=== PATIENT | male | born 1970 | race Caucasian/White ===

== ENCOUNTER 2016-11-06 09:04 | Inpatient (IN) | payer MEDICAID ==
[~2016-11-06] VITALS: Ht 180.3 cm; Wt 99.6 kg
[2016-11-06 10:26] VITALS: BP 131/87
[2016-11-06 12:00] VITALS: BP 122/82
[2016-11-06 13:06] LABS: BASO % 0.3 % (0.0-1.0); EOS # 0.1 10*3/uL (0.0-0.4); EOS % 1.1 % (1.0-4.0); HEMATOCRIT 43.1 % (42.0-52.0); HEMOGLOBIN 14.3 g/dl (14.0-18.0); IG # 0.1 10*3/uL (0.0-0.1); LYMPH # 1.7 10*3/uL (1.3-4.4); LYMPH % 18.1 % (27.0-41.0); MEAN CELL VOLUME 85.2 fl (80.0-94.0); MEAN CORPUSCULAR HGB 28.3 pg (27.0-31.0); MEAN CORPUSCULAR HGB CONC 33.2 g/dl (33.0-37.0); MEAN PLATELET VOLUME 10.6 fl (9.6-12.3); MONO # 0.4 10*3/uL (0.1-1.0); MONO % 4.4 % (3.0-9.0); NEUT # 7.1 10*3/uL (2.3-7.9); NEUT % 75.5 % (47.0-73.0); PLATELET COUNT AUTOMATED 218 10*3/uL (130-400); RED BLOOD COUNT 5.06 10*6/uL (4.50-5.90); RED CELL DISTRI WIDTH 12.2 % (0-14.5); WHITE BLOOD COUNT 9.4 10*3/uL (4.8-10.8)
[2016-11-06 13:14] LABS: PROTHROMBIN TIME 10.6 SECONDS (9.0-12.4)
[2016-11-06 13:22] LABS: ALBUMIN 3.7 gm/dl (3.1-4.5); ALKALINE PHOSPHATASE 113 U/L (45-117); BILIRUBIN, TOTAL 0.4 mg/dl (0.2-1.0); BUN 14 mg/dl (7-24); CARBON DIOXIDE 29 mmol/L (21-32); CHLORIDE 102 mmol/L (98-107); EST GLOM FILT AFRICAN AMERICAN > 60 ml/min; GLUCOSE 100 mg/dL (65-99); POTASSIUM 3.9 mmol/L (3.5-5.1); SGOT/AST 17 IU/L (3-35); SGPT/ALT 38 U/L (12-78); SODIUM 137 mmol/L (136-145); TOTAL PROTEIN 7.7 gm/dL (6.4-8.2)
[2016-11-06 16:00] VITALS: BP 110/56
[2016-11-06 16:05] LABS: BILIRUBIN NEGATIVE (NEGATIVE); BLOOD NEGATIVE (NEGATIVE); CLARITY CLEAR (CLEAR); COLOR YELLOW (YELLOW); GLUCOSE NEGATIVE (NEGATIVE); KETONE TRACE (NEGATIVE); LEUKO ESTERASE NEGATIVE (NEGATIVE); NITRITE NEGATIVE (NEGATIVE); PROTEIN NEGATIVE (NEGATIVE)
[2016-11-06 16:10] LABS: BACTERIA TRACE; EPITHELIAL CELLS 0-2; RBC 0-2 rbc/hpf (0-2); URINE REFLEX COMMENT NO (NO); WBC 0-2 wbc/hpf (0-5)
[2016-11-06 16:15] LABS: URINE AMPHETAMINES < 1000 (1000ng/ml); URINE BARBITURATES < 200 (200ng/ml); URINE COCAINE < 300 (300ng/ml)
[2016-11-06 20:00] VITALS: BP 117/75
[2016-11-07] VITALS: BP 110/72
[2016-11-07 08:00] VITALS: BP 131/85
[2016-11-07 16:00] VITALS: BP 122/78
[2016-11-07 20:00] VITALS: BP 123/76
[2016-11-08] VITALS: BP 112/75
[2016-11-08 08:00] VITALS: BP 118/78
[2016-11-08 12:00] VITALS: BP 112/71
[2016-11-08 16:00] VITALS: BP 112/67
[2016-11-08 20:00] VITALS: BP 122/85; BP 128/76
[2016-11-09] VITALS: BP 114/75
[2016-11-09 08:00] VITALS: BP 108/68
[2016-11-09] MEDS ORDERED: ATARAX,VISTARIL50 MG PO (09:06)
[2016-11-09] MEDS ORDERED: METHOCARBAMOL750 M1 PO (09:06)
== END 2016-11-09 10:46 | disposition home or self-care (01) | DRG 897 ==
LOC: 5E 09:04
PROVIDERS: Internal Medicine
DX: F11.23 Opioid dependence with withdrawal (principal); E66.9 Obesity, unspecified; Z68.34 Body mass index [BMI] 34.0-34.9, adult; G25.81 Restless legs syndrome; R73.9 Hyperglycemia, unspecified; F19.10 Other psychoactive substance abuse, uncomplicated

== ENCOUNTER 2017-02-10 03:46 | Emergency (ER) | payer MEDICAID ==
[~2017-02-10] VITALS: Ht 180.3 cm; Wt 99.8 kg
[~2017-02-10 03:46] MED LIST: ATARAX,VISTARIL50 MG PO; METHOCARBAMOL750 M1 PO
[2017-02-10] MEDS ORDERED: PHENERGAN25 M3 PO (04:20)
[2017-02-10] MEDS ORDERED: CLONIDINE0.3 MG PO (04:20)
== END 2017-02-10 06:51 | disposition home or self-care (01) ==
LOC: ED 03:46
DX: F11.23 Opioid dependence with withdrawal (principal); R11.0 Nausea; R68.83 Chills (without fever); R45.1 Restlessness and agitation

== ENCOUNTER 2017-02-12 12:37 | Inpatient (IN) | payer MEDICAID ==
[~2017-02-12] VITALS: Ht 180.3 cm; Wt 108.6 kg
[~2017-02-12 12:37] MED LIST changes: +CLONIDINE0.3 MG PO; +PHENERGAN25 M3 PO
[2017-02-12] MEDS ORDERED: ZANAFLEX4 M2 PO (14:13)
[2017-02-12] MEDS ORDERED: NEURONTIN300 MG PO (14:13)
[2017-02-12] MEDS ORDERED: PHENOBARBITAL64.8 MG PO (14:15)
[2017-02-12 14:20] VITALS: BP 134/85
[2017-02-12 14:38] VITALS: BP 134/85
[2017-02-12 15:51] LABS: URINE AMPHETAMINES < 1000 (1000ng/ml); URINE BARBITURATES > 200 (200ng/ml); URINE BENZODIAZEPINES < 200 (200ng/ml); URINE CANNABINOIDS (THC) < 50 (50ng/ml); URINE COCAINE < 300 (300ng/ml); URINE METHADONE < 300 (300ng/ml); URINE OPIATES > 300 (300ng/ml)
[2017-02-12 15:54] VITALS: BP 136/88
[2017-02-12 15:55] LABS: URINE PHENCYCLIDINE < 25 (25ng/ml)
[2017-02-12 17:21] LABS: BASO # 0.1 10*3/uL (0.0-0.1); BASO % 0.6 % (0.0-1.0); EOS # 0.3 10*3/uL (0.0-0.4); EOS % 3.8 % (1.0-4.0); HEMATOCRIT 39.7 % (42.0-52.0); HEMOGLOBIN 13.2 g/dl (14.0-18.0); LYMPH # 2.5 10*3/uL (1.3-4.4); LYMPH % 29.5 % (27.0-41.0); MEAN CELL VOLUME 86.7 fl (80.0-94.0); MEAN CORPUSCULAR HGB 28.8 pg (27.0-31.0); MEAN CORPUSCULAR HGB CONC 33.2 g/dl (33.0-37.0); MEAN PLATELET VOLUME 10.2 fl (9.6-12.3); MONO # 0.7 10*3/uL (0.1-1.0); MONO % 7.9 % (3.0-9.0); NEUT # 4.9 10*3/uL (2.3-7.9); NEUT % 57.5 % (47.0-73.0); PLATELET COUNT AUTOMATED 174 10*3/uL (130-400); RED BLOOD COUNT 4.58 10*6/uL (4.50-5.90); RED CELL DISTRI WIDTH 12.9 % (0-14.5); WHITE BLOOD COUNT 8.6 10*3/uL (4.8-10.8)
[2017-02-12 17:37] LABS: ALBUMIN 3.6 gm/dl (3.1-4.5); ALKALINE PHOSPHATASE 91 U/L (45-117); BUN 13 mg/dl (7-24); CHLORIDE 102 mmol/L (98-107); CREATININE 1.15 mg/dL (0.70-1.30); POTASSIUM 4.4 mmol/L (3.5-5.1); SGOT/AST 14 IU/L (3-35); SGPT/ALT 25 U/L (12-78); SODIUM 138 mmol/L (136-145); TOTAL PROTEIN 6.9 gm/dL (6.4-8.2)
[2017-02-12 20:00] VITALS: BP 122/60
[2017-02-13] VITALS: BP 121/68
[2017-02-13 03:50] LABS: BILIRUBIN NEGATIVE (NEGATIVE); BLOOD NEGATIVE (NEGATIVE); CLARITY SL CLOUDY (CLEAR); COLOR YELLOW (YELLOW); GLUCOSE NEGATIVE (NEGATIVE); KETONE NEGATIVE (NEGATIVE); LEUKO ESTERASE NEGATIVE (NEGATIVE); NITRITE NEGATIVE (NEGATIVE); PH 5.5 (5.0-9.0); SPECIFIC GRAVITY >= 1.030 (1.005-1.030); UROBILINOGEN 0.2 E.U./dl (0.2-1.0)
[2017-02-13 03:59] LABS: BACTERIA 2+; URIC ACID CRYSTALS 1+
[2017-02-13 04:00] VITALS: BP 120/65
[2017-02-13 06:00] LABS: BASO % 0.5 % (0.0-1.0); EOS # 0.4 10*3/uL (0.0-0.4); HEMATOCRIT 39.9 % (42.0-52.0); LYMPH # 2.5 10*3/uL (1.3-4.4); LYMPH % 33.2 % (27.0-41.0); MEAN CELL VOLUME 86.4 fl (80.0-94.0); MEAN CORPUSCULAR HGB 28.1 pg (27.0-31.0); MEAN CORPUSCULAR HGB CONC 32.6 g/dl (33.0-37.0); MEAN PLATELET VOLUME 10.8 fl (9.6-12.3); MONO # 0.6 10*3/uL (0.1-1.0); MONO % 8.3 % (3.0-9.0); NEUT # 3.9 10*3/uL (2.3-7.9); NEUT % 52.1 % (47.0-73.0); PLATELET COUNT AUTOMATED 161 10*3/uL (130-400); RED BLOOD COUNT 4.62 10*6/uL (4.50-5.90); RED CELL DISTRI WIDTH 12.6 % (0-14.5); WHITE BLOOD COUNT 7.4 10*3/uL (4.8-10.8)
[2017-02-13 06:35] LABS: ALBUMIN 3.1 gm/dl (3.1-4.5); BUN 13 mg/dl (7-24); CHLORIDE 104 mmol/L (98-107); CHOLESTEROL 217 mg/dL (<200); MAGNESIUM 2.6 mg/dL (1.5-2.1); POTASSIUM 3.7 mmol/L (3.5-5.1); SGOT/AST 14 IU/L (3-35); SGPT/ALT 28 U/L (12-78); SODIUM 141 mmol/L (136-145); TRIGLYCERIDES 336 mg/dl (<150); VLDL CHOLESTEROL 67 mg/dL (6-40)
[2017-02-13 06:42] LABS: ALKALINE PHOSPHATASE 86 U/L (45-117); CREATININE 1.02 mg/dL (0.70-1.30); FREE T4 0.94 ng/dl (0.76-1.46); HDL CHOLESTEROL 40 mg/dl (40-60); LDL CHOLESTEROL 110 mg/dL (9-159); PHOSPHOROUS 2.4 mg/dL (2.5-4.9); TOTAL PROTEIN 6.3 gm/dL (6.4-8.2)
[2017-02-13 07:16] LABS: VITAMIN D, 25-HYDROXY 23.3 ng/mL (30-100)
[2017-02-13 08:00] VITALS: BP 134/76
[2017-02-13 16:00] VITALS: BP 104/68
[2017-02-14] VITALS: BP 103/58
[2017-02-14 08:00] VITALS: BP 110/62
[2017-02-14 16:00] VITALS: BP 115/75; BP 116/67
[2017-02-14 20:00] VITALS: BP 129/64
[2017-02-15] VITALS: BP 122/78
[2017-02-15 06:18] LABS: BASO % 0.6 % (0.0-1.0); EOS # 0.3 10*3/uL (0.0-0.4); EOS % 4.9 % (1.0-4.0); HEMATOCRIT 41.8 % (42.0-52.0); HEMOGLOBIN 13.9 g/dl (14.0-18.0); LYMPH # 2.4 10*3/uL (1.3-4.4); LYMPH % 34.4 % (27.0-41.0); MEAN CELL VOLUME 85.3 fl (80.0-94.0); MEAN CORPUSCULAR HGB 28.4 pg (27.0-31.0); MEAN CORPUSCULAR HGB CONC 33.3 g/dl (33.0-37.0); MEAN PLATELET VOLUME 10.9 fl (9.6-12.3); MONO # 0.5 10*3/uL (0.1-1.0); MONO % 7.2 % (3.0-9.0); NEUT # 3.6 10*3/uL (2.3-7.9); NEUT % 51.9 % (47.0-73.0); PLATELET COUNT AUTOMATED 180 10*3/uL (130-400); RED CELL DISTRI WIDTH 12.6 % (0-14.5)
[2017-02-15 06:52] LABS: ALBUMIN 3.1 gm/dl (3.1-4.5); ALKALINE PHOSPHATASE 93 U/L (45-117); BUN 12 mg/dl (7-24); CHLORIDE 104 mmol/L (98-107); CREATININE 1.08 mg/dL (0.70-1.30); SGOT/AST 26 IU/L (3-35); SGPT/ALT 50 U/L (12-78); SODIUM 144 mmol/L (136-145); TOTAL PROTEIN 6.6 gm/dL (6.4-8.2)
[2017-02-15 08:00] VITALS: BP 128/80
[2017-02-15] MEDS ORDERED: ROPINIROLE HYD0.5 MG PO (08:32)
[2017-02-15] MEDS ORDERED: ATARAX,VISTARIL50 MG PO (08:32)
[2017-02-15] MEDS ORDERED: B12,B-12,B 12500 MC1 PO (08:32)
[2017-02-15] MEDS ORDERED: VITAMIN D31000 UNIT PO (08:32)
[2017-02-15] MEDS ORDERED: ZOCOR40 MG PO (09:45)
== END 2017-02-15 11:15 | disposition home or self-care (01) | DRG 897 ==
LOC: 5E 12:37
PROVIDERS: Registered Nurse; ADMIT Internal Medicine
DX: F11.23 Opioid dependence with withdrawal (principal); E44.0 Moderate protein-calorie malnutrition; E83.41 Hypermagnesemia; E83.39 Other disorders of phosphorus metabolism; E78.2 Mixed hyperlipidemia; E53.8 Deficiency of other specified B group vitamins; R73.03 Prediabetes; D64.9 Anemia, unspecified; F41.9 Anxiety disorder, unspecified; E66.9 Obesity, unspecified; Z68.33 Body mass index [BMI] 33.0-33.9, adult